=== PATIENT | female | born 1940 | race Caucasian/White ===

== ENCOUNTER → 2017-12-01 | Day surgery (SDC) | payer MEDICARE, SELFPAY | END | disposition home or self-care (01) | PROVIDERS: Family Provider Physician Assistant; PCP Physician Assistant; Visit Provider Ophthalmology | DX: H25.11 Age-related nuclear cataract, right eye (principal); F41.9 Anxiety disorder, unspecified | CPT/HCPCS: J2250; J3010 ==

== ENCOUNTER → 2018-01-27 09:10 | Outpatient (CLI) | payer MEDICARE, SELFPAY ==
[2018-01-27 09:53] LABS: Alanine Aminotransferase 31 IU/L (9-52); Albumin 4.6 g/dL (3.5-5.0); Albumin Globulin Ratio 1.6 (1.0-2.8); Alkaline Phosphatase 79 U/L (38-126); Aspartate Aminotransferase 42 IU/L (14-36); Bilirubin Total 0.8 mg/dL (0.2-1.3); Blood Urea Nitrogen 16 mg/dL (7-17); Calcium 9.5 mg/dL (8.4-10.2); Carbon Dioxide 29 mmol/L (22-32); Chloride 104 mmol/L (98-107); Cholesterol 196 mg/dL (140-199); Estimated Glomerular Filt Rate > 60.0 mL/min (>60); Globulin 2.9 g/dL (1.7-4.1); Glucose 97 mg/dL (80-110); HDL Cholesterol 64 mg/dL (40-60); HEMOLYSIS < 15 (0-50); LDL Cholesterol Calculated 109 mg/dL (<100); Potassium 4.5 mmol/L (3.4-5.1); Sodium 144 mmol/L (137-145); Total Protein 7.5 g/dL (6.3-8.2); Triglycerides 116 mg/dL (35-150)
== END ==
PROVIDERS: Family Provider Physician Assistant; PCP Physician Assistant; Visit Provider Physician Assistant
DX: E78.5 Hyperlipidemia, unspecified (principal)
CPT/HCPCS: 36415; 80053; 80061

== ENCOUNTER → 2018-02-12 15:05 | Outpatient (CLI) | payer MEDICARE, SELFPAY ==
--- NOTE | 2018-02-12 | DI.MRI.S_ITS ---
PROCEDURE: MR KNEE LT WO CON INDICATIONS: LEFT KNEE PAIN TECHNIQUE: Noncontrast sagittal PD fast spin echo and T2 fast spin echo with fat saturation, sagittal 3-D FLASH with fat saturation; coronal T1 spin echo and PD fast spin echo with fat saturation, and axial PD fast spin echo with fat saturation through the knee. COMPARISON: None. FINDINGS: Image quality: Excellent. Menisci: Lateral meniscal tear with truncation of the free margin of the body seen on image 19 series 6. There is also an undersurface tear of the medial meniscus and involving the body and posterior horn. There is partial extrusion. Cruciate ligaments: The anterior cruciate ligament is not well-visualized and likely ruptured although this is probably a chronic finding. The posterior cruciate ligament appears intact. Medial structures: The medial collateral ligament appears intact. The posterior oblique ligament, semimembranosus tendon insertions, oblique popliteal ligament, and meniscocapsular junction appear intact. Visualized portions of the pes anserinus tendons appear normal. No abnormal bursal fluid. Lateral structures: The lateral collateral ligament, long and short heads of the biceps femoris tendon appear intact. The popliteus tendon appears normal; the popliteofibular ligament appears intact. The posterosuperior and anteroinferior popliteomeniscal fascicles appear intact. The arcuate and fabellofibular ligaments appear intact, on either side of the lateral inferior geniculate artery. Iliotibial band appears normal. Anterior structures: The quadriceps and patellar tendons appear intact. There is superficial infrapatellar subcutaneous edema Patellar alignment is normal. No femoral trochlear dysplasia or ventral trochlear prominence. No edema in the infrapatellar fat pad. Bones and cartilage: No bone marrow contusions or fractures. Within the medial compartment, diffuse surface fraying of the femoral articular cartilage without focal defect. Within the lateral compartment, intrasubstance signal change at the central weightbearing tibial cartilage and diffuse mild partial thickness loss of the femoral cartilage. Within the patellofemoral compartment, surface fraying of the cartilage overlying the median patellar ridge and medial patellar facet. Joint space: No pathologic joint effusion. Tiny Riggs's cyst is seen measuring approximately 1.0 cm IMPRESSION: Medial meniscal tear involving the posterior horn and body with partial extrusion. Lateral meniscal tear involving the body. 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 Please correlate clinically abdomen exam findings. Degenerative joint disease as above. Tiny Riggs's cyst Dictated by: Jeremy Waterman M.D. on 02/12/2018 at 16:11 Approved by: Jeremy Waterman M.D. on 02/12/2018 at 16:16
== END ==
PROVIDERS: Family Provider Physician Assistant; PCP Physician Assistant; Visit Provider Physician Assistant
DX: M25.562 Pain in left knee (principal); S83.282A Other tear of lateral meniscus, current injury, left knee, initial encounter; S83.242A Other tear of medial meniscus, current injury, left knee, initial encounter; S83.512A Sprain of anterior cruciate ligament of left knee, initial encounter
CPT/HCPCS: 73721

== ENCOUNTER → 2019-10-17 18:40 | Outpatient (ROUT) | payer MEDICARE, SELFPAY ==
[2019-10-17 19:15] LABS: Add Manual Diff / Slide Review NO; Basophils Absolute Auto 0 /uL (0-100); Basophils Percent Auto 0.8 % (0-2); Eosinophils Absolute Auto 100 /uL (0-450); Eosinophils Percent Auto 1.8 % (2-4); Hemoglobin 13.9 g/dL (12.0-16.0); Lymphocytes Absolute Auto 1400 /uL (1100-4500); Mean Corpuscular HGB Conc 33.9 % (30-36); Mean Corpuscular Hemoglobin 31.7 PG (26-34); Mean Corpuscular Volume 93.5 fL (80-100); Monocytes Absolute Auto 400 /uL (0-900); Monocytes Percent Auto 7.8 % (3-14); Neutrophils Absolute Auto 3700 /uL (1500-7000); Neutrophils Percent Auto 65.6 % (50-75); Platelet Count 178 X10^3/uL (150-400); Red Blood Cell Count 4.39 X10^6/uL (4.0-5.2); Red Cell Distribution Width 13.8 % (11.6-14.8); White Blood Cell Count 5.7 X10^3/uL (4.5-11.0)
[2019-10-17 19:24] LABS: Alanine Aminotransferase 22 IU/L (<35); Albumin 4.5 g/dL (3.5-5.0); Albumin Globulin Ratio 1.7 (1.0-2.8); Alkaline Phosphatase 73 U/L (38-126); Aspartate Aminotransferase 38 IU/L (14-36); BUN Creatinine Ratio 26.5 (6-22); Bilirubin Total 0.6 mg/dL (0.2-1.3); Blood Urea Nitrogen 18 mg/dL (7-17); Calcium 9.7 mg/dL (8.4-10.2); Carbon Dioxide 28 mmol/L (22-32); Chloride 103 mmol/L (98-107); Cholesterol 184 mg/dL (140-199); Estimated Glomerular Filt Rate > 60.0 mL/min (>60); Globulin 2.7 g/dL (1.7-4.1); Glucose 104 mg/dL (80-110); HDL Cholesterol 60 mg/dL (40-60); HEMOLYSIS < 15 (0-50); LDL Cholesterol Calculated 92 mg/dL (<100); Potassium 3.9 mmol/L (3.4-5.1); Sodium 138 mmol/L (137-145); Total Protein 7.2 g/dL (6.3-8.2); Triglycerides 162 mg/dL (35-150)
== END ==
PROVIDERS: Family Provider Physician Assistant; PCP Physician Assistant; Visit Provider Physician Assistant
DX: E78.5 Hyperlipidemia, unspecified (principal)
CPT/HCPCS: 80053; 80061; 85025

== ENCOUNTER 2020-01-23 08:30 | Observation (INO) | payer MEDICARE, SELFPAY ==
[2020-01-23] VITALS (24 sets, daily range): BP systolic 82–117; BP diastolic 44–68; PULSE 60–69; RESP 12–18; TEMP 36.4–37.7; O2SAT 91–98; BMI 26.5; BMI 26.4
--- NOTE | 2020-01-23 | PATH_ITS ---
[facility] Accession Number: [id number] . 01 Material submitted: . appendix - APPENDIX . 01 Clinical history: . STOMACH PAINS . 02 Diagnosis: Appendix, Appendectomy: Acute appendicitis with serositis. No evidence of neoplasm. V 01/25/2020 1211 Local . 02 Electronically signed: . Veto Collins MD, PhD, Pathologist NPI- [id number] . 01 Gross description: . Specimen A is received in formalin and labeled appendix. It consists of a vermiform appendix measuring 5.6 cm in length and 0.8 cm in diameter. The attached mesoappendix measures 7.0 x 2.2 x 1.9 cm. The staple line at the proximal margin is removed and the tissue underneath is inked black. The serosa is pink-pereyra with scattering white exudate. Sectioning reveals pink-pereyra cut surface with a patent lumen which dilates up to 0.6 cm. The wall thickness is 0.2 cm. The mucosa is red to brown-pereyra and mildly rough. Summary of sections: Lighting Fixtures Decorator are submitted in three cassettes. Summary of sections: A1-proximal margin, one piece. A2-sales representative livestock cross-sections of appendix, three pieces. A3-bisected appendiceal tip, two pieces. (____/[id number] [id number]) /MRV 01/24/2020 1131 Local . 02 Pathologist provided ICD-10: K35.80 . 02 CPT . 809623 Performed at: 01 [facility] [address] [facility], [place], [place] [id number] MD Leon Storm MD Phone: [phone] Performed at: 02 [facility] [place] [address] [place], [place] [id number] MD Ariadna Vyas MD Phone: [phone]
[2020-01-23 08:59] LABS: Add Manual Diff / Slide Review NO; Basophils Absolute Auto 0 /uL (0-100); Basophils Percent Auto 0.3 % (0-2); Eosinophils Absolute Auto 0 /uL (0-450); Eosinophils Percent Auto 0.1 % (2-4); Hematocrit 39.9 % (36-46); Hemoglobin 13.9 g/dL (12.0-16.0); Lymphocytes Absolute Auto 600 /uL (1100-4500); Lymphocytes Percent Auto 4.7 % (25-40); Mean Corpuscular HGB Conc 34.8 % (30-36); Mean Corpuscular Hemoglobin 32.5 PG (26-34); Mean Corpuscular Volume 93.6 fL (80-100); Monocytes Absolute Auto 600 /uL (0-900); Monocytes Percent Auto 4.6 % (3-14); Neutrophils Absolute Auto 12100 /uL (1500-7000); Neutrophils Percent Auto 90.3 % (50-75); Platelet Count 162 X10^3/uL (150-400); Prothrombin Time 11.7 SECONDS (10.1-12.7); Red Blood Cell Count 4.27 X10^6/uL (4.0-5.2); Red Cell Distribution Width 13.5 % (11.6-14.8); White Blood Cell Count 13.4 X10^3/uL (4.5-11.0)
[2020-01-23 09:02] LABS: PTT Partial Thromboplastin Tim 29 SECONDS (26.4-36.2)
[2020-01-23 09:07] LABS: Alanine Aminotransferase 20 IU/L (<35); Albumin 4.8 g/dL (3.5-5.0); Albumin Globulin Ratio 1.8 (1.0-2.8); Alkaline Phosphatase 84 U/L (38-126); Aspartate Aminotransferase 38 IU/L (14-36); BUN Creatinine Ratio 27.4 (6-22); Bilirubin Total 0.7 mg/dL (0.2-1.3); Blood Urea Nitrogen 17 mg/dL (7-17); Calcium 9.6 mg/dL (8.4-10.2); Carbon Dioxide 22 mmol/L (22-32); Chloride 106 mmol/L (98-107); Estimated Glomerular Filt Rate > 60.0 mL/min (>60); Globulin 2.7 g/dL (1.7-4.1); Glucose 147 mg/dL (80-110); HEMOLYSIS < 15 (0-50); Lipase 1748 U/L (23-300); Potassium 4.2 mmol/L (3.4-5.1); Sodium 137 mmol/L (137-145); Total Protein 7.5 g/dL (6.3-8.2)
--- NOTE | 2020-01-23 09:39 | DI.CT.S_ITS ---
PROCEDURE: CT ABDOMEN PELVIS W CON INDICATIONS: severe right and left lower tenderness with guarding and anthony TECHNIQUE: After the administration of intravenous contrast, 5 mm thick sections acquired from the diaphragm to the symphysis. 5 mm coronal and sagittal reformats were acquired. For radiation dose reduction, the following was used: automated exposure control, adjustment of mA and/or kV according to patient size. COMPARISON: [facility], , L-SPINE WITHOUT CONTRAST, 11/13/2015, 12:33. FINDINGS: Image quality: Excellent. ABDOMEN: Lung bases: Lung bases are clear. Heart size is normal. There is a small hiatal hernia. Solid organs: Liver is normal in size and enhancement. There is a 1.4 x 2.1 cm bilobed hypodensity in the left hepatic lobe, most likely a cyst. There is mild intrahepatic biliary dilation, presumably related to cholecystectomy. Common bile duct is mildly dilated. Pancreas enhances normally. Spleen is normal in size and enhancement. There is a 1.2 cm left adrenal nodule. Kidneys demonstrate normal size and enhancement, without hydronephrosis. Peritoneum and bowel: Appendix is enlarged measuring 10 mm in diameter. There is increased appendiceal wall enhancement and mild periappendiceal stranding. Small appendicoliths within the distal appendix. The CT findings are consistent with early acute appendicitis. No fluid collections to suggest appendiceal abscess. No free fluid or free air. Fluid filled small bowel loops demonstrate normal caliber without transition point. Possible mild thickening of terminal ileum. There are scattered colonic diverticula. Nodes and vessels: No retroperitoneal or mesenteric adenopathy by size criteria. Aorta and inferior vena cava are normal in size. Moderate atherosclerosis of the abdominal aorta and iliac arteries. Miscellaneous: No ventral hernias. PELVIS: Genitourinary: Bladder wall thickness is normal. Miscellaneous: No inguinal hernias or adenopathy. Bones: No suspicious bony lesions. No vertebral body compression fractures. Severe degenerative changes in lumbar spine. IMPRESSION: 1. Early acute appendicitis. No findings to suggest appendiceal perforation or abscess. 2. Diverticulosis without acute diverticulitis. 3. Fluid filled small bowel loops demonstrate normal caliber without transition point, most likely secondary to ileus. There is possible mild thickening of terminal ileum. Differential diagnoses include artifact related to peristalsis or inflammatory/infectious process. 4. A 1.2 cm left adrenal nodule. A nonurgent adrenal protocol CT or MRI is suggested for further evaluation. Dictated by: Maria R Escalante M.D. on 01/23/2020 at 10:25 Approved by: Maria R Escalante M.D. on 01/23/2020 at 10:38
[2020-01-23] MEDS: MORPHINE 4 MG/ML INJ IV (09:48)
[2020-01-23] MEDS: diphenhydrAMINE 50 MG/ML VIAL 25 MG IV (09:49)
[2020-01-23] MEDS: methylPREDNISolone 125 MG/2 ML VIAL IV (09:49)
[2020-01-23] MEDS: ONDANSETRON 4 MG/2 ML INJ IV (09:49)
[2020-01-23 09:54] LABS: Lactate Dehydrogenase 422 U/L (313-618)
[2020-01-23 10:15] LABS: Lactate (Lactic Acid) 0.9 mmol/L (0.7-2.1)
--- NOTE | 2020-01-23 12:01 | ED.ABDPAIN ---
HPI - Abdominal Pain General Chief Complaint: Abdominal Pain Stated Complaint: stomach pains Time Seen by Provider: 01/23/20 09:31 Source: patient Mode of arrival: Ambulatory Limitations: no limitations Related Data Home Medications Medication Instructions Recorded Confirmed vitamin B complex [B 1 tab PO QDAY #0 11/24/16 03/01/19 Complex-Vitamin B12] omega-3 fatty acids 1,000 mg 1,000 mg PO DAILY 01/28/18 01/23/20 capsule Chalino/Mag/Zinc 1 tab PO DAILY 03/01/19 01/23/20 Sleep Aid from [employer] 1 cap PO BEDTIME PRN 03/01/19 01/23/20 vit C 250 mg-E 200 unit-zinc 40 1 tab PO DAILY cap 03/01/19 01/23/20 mg-copper 1 [id number] capsule Previous Rx's Medication Instructions Recorded pneumoc 13-edelmira conj-dip cr(PF) 0.5 0.5 ml IM ONCE #0.5 ml 03/01/19 mL IM syringe varicella-zoster gE-AS01B (PF) 50 50 mcg IM ONCE #1 each 03/01/19 mcg/0.5 mL IM susp, kit atorvastatin 80 mg tablet 80 mg PO HS #360 tab 04/06/19 sertraline 100 mg tablet See Rx Instructions PO QDAY #360 04/06/19 tab Allergies Allergy/AdvReac Type Severity Reaction Status Date / Time cat dander [CAT DANDER] Allergy Mild HIVES, Verified 01/23/20 14:37 ITCHING Iodinated Contrast Media Allergy Swelling Verified 01/23/20 14:37 of Lip/Tongue/Throat contrast for eye AdvReac Severe throat Uncoded 01/23/20 09:00 swells tingling in arm 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 Does not appear toxic or ill. She does appear pale HEAD: AT/NC EENT: PERRL, FROM of eyes, no discharge, no conjunctivitis. Conjunctivae appear pale NOSE:No epistaxis or nasal drainage MOUTH:Oral mucosa is moist and pink, posterior pharynx is without erythema or exudate. NECK: Supple, no obvious JVD, Trachea is midline without stridor, no palpable LN. SPINE: Palpation of the cervical, Thoracic, Lumbar or Sacral spine reveals no gross deformity or tenderness. No CVA tenderness. THORAX: No deformity, retractions, chest wall tenderness. LUNGS: Breath sounds are decreased bilaterally clear and symmetrical. HEART: Regular rhythm with normal heart tones no appreciable murmur ABDOMEN: The patient's abdomen is mildly distended and tympanitic. The patient is exquisitely tender to palpation right lower quadrant greater than the left lower quadrant with guarding and mild rebound. On palpation the patient jumped with discomfort. The rest of the patient's abdomen was soft. EXTREMITIES: No edema, deformity, tenderness or cyanosis. SKIN: No rash, bruising, petechiae or purpura. NEURO: Awake, alert, oriented, conversive, cranial nerves II-XII are symmetrical , moves all 4 extremities and is ambulatory. MENTAL HEALTH: Does not appear anxious or depressed. Initial Vital Signs Initial Vital Signs: Vital Signs Temperature 97.9 F 01/23/20 08:30 Pulse Rate 64 01/23/20 08:30 Respiratory Rate 18 01/23/20 08:30 Blood Pressure 116/62 01/23/20 08:30 Pulse Oximetry 98 01/23/20 08:30 Course Course Course Narrative: 1155: The patient's lipase is elevated at 1748 consistent with acute pancreatitis, her white blood count is 13.4. CT: Abdomen: 1. CT of the patient's abdomen reveals early appendicitis. No findings to suggest appendiceal perforation or abscess. 2. Diverticulosis without acute diverticulitis 3. Fluid filled small bowel loops demonstrated normal caliber without transition point. Most likely secondary to ileus. There is possible mild thickening of the terminal ileum. Differential diagnosis include artifact related to peristalsis or inflammatory infectious process. 4. A 1.2 cm left adrenal nodule. A non urgent adrenal protocol CT or MRI is suggested for further evaluation. 1208: The patient has acute appendicitis on CT. She will be administered 4.5 g of Zosyn. A call has been placed to Dr. Haley the general surgeon on-call to consult and admit the patient. 12:13 I discussed the patient with who will admit the patient observation status. Orders Ordered: Acetaminophen (Tylenol) 650 mg PO Q6HR HANANE Last Admin: 01/23/20 18:13 Dose: 650 mg Documented by: JORGE Atorvastatin Calcium (Lipitor) 80 mg PO BEDTIME HANANE Fentanyl (Sublimaze) 0 mcg IV Q5M PRN PRN Reason: Pain, Moderate (4-6) Fish Oil (Fish Oil) 1,000 mg PO DAILY HANANE Hydromorphone HCl (Dilaudid) 0 mg IV Q5MIN PRN PRN Reason: Pain, Mild (1-3) Sodium Chloride (Normal Saline 0.9%) 1,000 mls @ 100 mls/hr IV CONT HANANE Last Admin: 01/23/20 14:22 Dose: Not Given Documented by: CHRISTINA Piperacillin/Tazobactam/Dextrose (Zosyn) 3.375 gm in 50 mls @ 100 mls/hr IV Q8H HANANE Last Admin: 01/23/20 14:21 Dose: Not Given Documented by: TBLANTO Lutein (Ocuvite/Lutein) 1 cap PO DAILY HANANE Morphine Sulfate (Morphine) 2 mg IV Q4HR PRN PRN Reason: Pain, Moderate (4-6) Naloxone HCl (Narcan) 0.2 mg IV Q2MIN PRN PRN Reason: Opiate Reversal Non-Formulary Medication (Sleep Aid From [employer]) 1 cap PO BEDTIME PRN PRN Reason: Sleep Non-Formulary Medication (Varicella-Zoster Ge-As01b (Pf) [Shingrix (Pf)]) 50 mcg IM ONCE HANANE Ondansetron HCl (Zofran) 4 mg IV Q2HR PRN PRN Reason: Nausea And Vomiting Last Admin: 01/23/20 09:49 Dose: 4 mg Documented by: ROXANA Ondansetron HCl (Zofran) 4 mg IV NOW PRN PRN Reason: Nausea And Vomiting Oxycodone HCl (Percolone) 5 mg PO Q6HR PRN PRN Reason: Pain, Moderate (4-6) Pneumococcal 13-Valent Conj Vacc (Prevnar 13) 0.5 ml IM ONCE HANANE Sertraline HCl (Zoloft) 100 mg PO DAILY HANANE Sodium Chloride (Normal Saline 0.9% Flush) 10 ml IV PRN PRN PRN Reason: Flush Discontinued Medications Bupivacaine HCl (Sensorcaine 0.5% (Pf)) 30 ml INJ NOW ONE Stop: 01/23/20 15:53 Last Admin: 01/23/20 15:52 Dose: 30 ml Documented by: MARIA DOLORES Diphenhydramine HCl (Benadryl) 25 mg IV NOW ONE Stop: 01/23/20 09:42 Last Admin: 01/23/20 09:49 Dose: 25 mg Documented by: ROXANA Piperacillin/Tazobactam/Dextrose (Zosyn) 4.5 gm in 100 mls @ 200 mls/hr IV NOW ONE Stop: 01/23/20 12:37 Last Infusion: 01/23/20 14:22 Dose: 0 mls/hr Documented by: Admin: 01/23/20 12:30 Dose: 200 mls/hr Documented by: ROXANA Lactated Ringer's (Lactated Ringers) 1,000 mls @ 42 mls/hr IV CONT HANANE Last Admin: 01/23/20 16:39 Dose: 42 mls/hr Documented by: Infusion: 01/23/20 16:39 Dose: 42 mls/hr Documented by: Admin: 01/23/20 14:43 Dose: 42 mls/hr Documented by: RAYNE Methylprednisolone (Solu-Medrol 125 Mg Vial) 125 mg IV NOW ONE Stop: 01/23/20 09:42 Last Admin: 01/23/20 09:49 Dose: 125 mg Documented by: ROXANA Midazolam HCl (Versed) 2 mg IV NOW ONE Stop: 01/23/20 13:18 Last Admin: 01/23/20 17:59 Dose: Not Given Documented by: JORGE Morphine Sulfate (Morphine) 4 mg IV NOW ONE Stop: 01/23/20 09:42 Last Admin: 01/23/20 09:48 Dose: 4 mg Documented by: ROXANA Non-Formulary Medication (Chalino/Mag/Zinc) 1 tab PO DAILY HANANE Vital Signs Vital signs: Vital Signs - 8 hr 01/23/20 12:49 Pulse Rate 64 Respiratory Rate 16 Blood Pressure 93/57 L Pulse Oximetry 93 MDM - Abdominal Pain Medical Records Attestation: I reviewed the patient's medical records. Lab Data Attestation: I reviewed the patient's lab results. Result diagrams: 01/23/20 08:40 01/23/20 08:40 Labs: Lab Results 01/23/20 01/23/20 01/23/20 Range/Units 08:40 08:40 08:40 WBC 13.4 H (4.5-11.0) X10^3/uL RBC 4.27 (4.0-5.2) X10^6/uL Hgb 13.9 (12.0-16.0) g/dL Hct 39.9 (36-46) % MCV 93.6 (80-100) fL MCH 32.5 (26-34) PG MCHC 34.8 (30-36) % RDW 13.5 (11.6-14.8) % Plt Count 162 (150-400) X10^3/uL Neut % (Auto) 90.3 H (50-75) % Lymph % (Auto) 4.7 L (25-40) % [place] % (Auto) 4.6 (3-14) % Eos % (Auto) 0.1 L (2-4) % Baso % (Auto) 0.3 (0-2) % Neut # (Auto) 74581 H (3085-4389) /uL Lymph # (Auto) 600 L (5798-5571) /uL Denton # (Auto) 600 (0-900) /uL Eos # (Auto) 0 (0-450) /uL Baso # (Auto) 0 (0-100) /uL PT 11.7 (10.1-12.7) SECONDS INR 1.0 (0.9-1.3) APTT 29 (26.4-36.2) SECONDS Sodium 137 (137-145) mmol/L Potassium 4.2 (3.4-5.1) mmol/L Chloride 106 (98-107) mmol/L Carbon Dioxide 22 (22-32) mmol/L BUN 17 (7-17) mg/dL Creatinine 0.62 (0.52-1.04) mg/dL Estimated GFR > 60.0 (>60) mL/min BUN/Creatinine Ratio 27.4 H (6-22) Glucose 147 H (80-110) mg/dL Lactate (0.7-2.1) mmol/L Calcium 9.6 (8.4-10.2) mg/dL Total Bilirubin 0.7 (0.2-1.3) mg/dL AST 38 H (14-36) IU/L ALT 20 (<35) IU/L Alkaline Phosphatase 84 (38-126) U/L Lactate Dehydrogenase (313-618) U/L Total Protein 7.5 (6.3-8.2) g/dL Albumin 4.8 (3.5-5.0) g/dL Globulin 2.7 (1.7-4.1) g/dL Albumin/Globulin Ratio 1.8 (1.0-2.8) Lipase 1748 H (23-300) U/L COVID-19 PCR (Negative) 01/23/20 01/23/20 01/23/20 Range/Units 09:39 09:46 12:42 WBC (4.5-11.0) X10^3/uL RBC (4.0-5.2) X10^6/uL Hgb (12.0-16.0) g/dL Hct (36-46) % MCV (80-100) fL MCH (26-34) PG MCHC (30-36) % RDW (11.6-14.8) % Plt Count (150-400) X10^3/uL Neut % (Auto) (50-75) % Lymph % (Auto) (25-40) % [place] % (Auto) (3-14) % Eos % (Auto) (2-4) % Baso % (Auto) (0-2) % Neut # (Auto) (6395-4034) /uL Lymph # (Auto) (9266-7109) /uL Denton # (Auto) (0-900) /uL Eos # (Auto) (0-450) /uL Baso # (Auto) (0-100) /uL PT (10.1-12.7) SECONDS INR (0.9-1.3) APTT (26.4-36.2) SECONDS Sodium (137-145) mmol/L Potassium (3.4-5.1) mmol/L Chloride (98-107) mmol/L Carbon Dioxide (22-32) mmol/L BUN (7-17) mg/dL Creatinine (0.52-1.04) mg/dL Estimated GFR (>60) mL/min BUN/Creatinine Ratio (6-22) Glucose (80-110) mg/dL Lactate 0.9 (0.7-2.1) mmol/L Calcium (8.4-10.2) mg/dL Total Bilirubin (0.2-1.3) mg/dL AST (14-36) IU/L ALT (<35) IU/L Alkaline Phosphatase (38-126) U/L Lactate Dehydrogenase 422 (313-618) U/L Total Protein (6.3-8.2) g/dL Albumin (3.5-5.0) g/dL Globulin (1.7-4.1) g/dL Albumin/Globulin Ratio (1.0-2.8) Lipase (23-300) U/L COVID-19 PCR Negative (Negative) Point of care testing: Urine Dip Bedside Urine Glucose Negative Bedside Urine Bilirubin - Negative Bedside Urine Ketone - Negative Urine Specific Imperial 1.010 Bedside Urine Occult Blood - Negative Bedside Urine pH 6.0 Bedside Urine Protein - Negative Bedside Urine Urobilinogen - Negative Bedside Urine Nitrite - Negative Bedside Urine Leukocytes - Negative Esterase ECG Data Attestation: I personally reviewed and interpreted this ECG as follows: Interpretation: The patient's EKG obtained on January 22 at 9:00 a.m. revealed a normal sinus rhythm with a ventricular rate of 61. She has normal intervals QTC is 446 milliseconds duration. The patient has low voltage criteria over her limb leads. The patient has no acute diagnostic ST or T-wave changes. The patient's EKG appears normal without any signs of ischemia or injury. T-waves are upright in lead III and V1. Discharge Plan Departure Patient Disposition: Admitted as Observation Clinical Impression: Abdominal pain, acute, right lower quadrant Acute appendicitis Qualifiers: Acute appendicitis type: unspecified acute appendicitis type Qualified Code(s): K35.80 - Unspecified acute appendicitis Acute pancreatitis Qualifiers: Pancreatitis type: unspecified pancreatitis type Acute pancreatitis complication: unspecified Qualified Code(s): K85.90 - Acute pancreatitis without necrosis or infection, unspecified Discharge Date/Time: 01/23/20 12:57 Referrals: Marli Ag PA-C [Primary Care Provider] - Admit Date/Time: 01/23/20 12:56 Admit Provider: Kelby Haley
[2020-01-23] MEDS: PIPERACILLIN-TAZO 4.5 GM/100 ML FROZ.PIGGY IV (12:30)
[2020-01-23 13:43] LABS: COVID19 -Nasal RAPID Negative (Negative)
--- NOTE | 2020-01-23 14:25 | PC.NURSE ---
pt admitted from ed with appendicitis/pancreatitis she rates her lower right abd pain 1-2/10 urinated prior to leaving with OR CREW-
--- NOTE | 2020-01-23 14:29 | P.HP_ITS ---
History of Present Illness History of Present Illness Date Patient Seen: 01/23/20 Time Patient Seen: 14:30 Chief complaint: stomach pains Narrative: Gloria is a healthy 79-year-old woman who is seen for evaluation of acute appendicitis. She developed abdominal pain <24 hrs ago which has become increasingly severe in nature. It is located primarily in the right lower quadrant now. She had associated nausea and diarrhea no emesis. She had a CT abdomen pelvis which demonstrates acute appendicitis without abscess. Laboratory studies are significant for WBC 13, Hct 40, Cr 0.6, and Lipase 1700. I personally reviewed her CT and agree with radiology there is no radiographic evidence of pancreatitis. Prior abdominal surgery includes laparoscopic cholecystectomy and hysterectoy. No significant history of cardiopulmonary renal or hepatic disease. She is a nonsmoker and not on anticoagulation. 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 09/22/16) Generalized anxiety disorder (Chronic) Hyperlipidemia (Chronic 12/16/10) Other isolated or specific phobias (Chronic) Panic disorder (Chronic 12/16/10) Family & Social History Social History: household members spouse Prior Living Arrangements House Safety & Behavioral: Feels Safe in Current Yes Environment Been Physically Hurt or No Threatened By a Person Suicide Plan Description No Plan Tobacco & Substance use: Smoking Status Former smoker alcohol intake current alcohol intake frequency 0-2 drinks per day Substance Use Type does not use Meds Home Medications and Allergies Home Medications Medication Instructions Recorded Confirmed Type vitamin B complex [B 1 tab PO QDAY #0 11/24/16 03/01/19 History Complex-Vitamin B12] omega-3 fatty acids 1,000 mg 1,000 mg PO DAILY 01/28/18 03/01/19 History capsule Chalino/Mag/Zinc 1 tab PO DAILY 03/01/19 01/23/20 History Sleep Aid from [employer] 1 cap PO BEDTIME PRN 03/01/19 03/01/19 History pneumoc 13-edelmira conj-dip cr(PF) 0.5 0.5 ml IM ONCE #0.5 ml 03/01/19 Rx mL IM syringe varicella-zoster [id number] (PF) 50 50 mcg IM ONCE #1 each 03/01/19 Rx mcg/0.5 mL IM susp, kit vit C 250 mg-E 200 unit-zinc 40 1 tab PO DAILY cap 03/01/19 03/01/19 History mg-copper 1 ku-hkabct-nzoluh capsule atorvastatin 80 mg tablet 80 mg PO HS #360 tab 04/06/19 01/23/20 Rx sertraline 100 mg tablet See Rx Instructions PO QDAY #360 04/06/19 Rx tab Allergies Allergy/AdvReac Type Severity Reaction Status Date / Time cat dander [CAT DANDER] Allergy Mild HIVES, Verified 01/23/20 14:37 ITCHING Iodinated Contrast Media Allergy Swelling Verified 01/23/20 14:37 of Lip/Tongue/Throat contrast for eye AdvReac Severe throat Uncoded 01/23/20 09:00 swells tingling in arm Review of Systems Review of Systems Narrative: A 10 point review of systems is negative except as noted in the HPI Exam Vital Signs (past 8 hours): - 01/23/20 08:30 01/23/20 09:00 01/23/20 10:50 Temperature 97.9 F Pulse Rate 64 61 60 Respiratory Rate 18 12 16 Blood Pressure 116/62 Blood Pressure [Right Arm] 115/54 L 111/55 L Pulse Oximetry 98 94 97 01/23/20 12:49 01/23/20 13:30 01/23/20 14:17 Temperature 98.5 F Pulse Rate 64 60 Respiratory Rate 16 16 Blood Pressure 93/57 L 106/68 Blood Pressure [Right Arm] Pulse Oximetry 93 94 97 Oxygen Delivery Method Room Air Oxygen Flow Rate 0 Narrative Exam Narrative: General-no acute distress, well nourished HEENT-moist mucous membranes, no scleral icterus Neck-supple, no lymphadenopathy Chest- non labored respirations, clear to auscultation bilaterally Cardiac-regular rate no peripheral edema Abdomen-focal peritonitis RLQ Extremities-warm, well perfused Neurological-alert and oriented, no focal deficits Objective Labs Result Diagrams: 01/23/20 08:40 01/23/20 08:40 Labs: Laboratory Results - last 24 hr 01/23/20 01/23/20 01/23/20 08:40 08:40 08:40 WBC 13.4 H RBC 4.27 Hgb 13.9 Hct 39.9 MCV 93.6 MCH 32.5 MCHC 34.8 RDW 13.5 Plt Count 162 Neut % (Auto) 90.3 H Lymph % (Auto) 4.7 L Sutton % (Auto) 4.6 Eos % (Auto) 0.1 L Baso % (Auto) 0.3 Neut # (Auto) 47044 H Lymph # (Auto) 600 L Sutton # (Auto) 600 Eos # (Auto) 0 Baso # (Auto) 0 PT 11.7 INR 1.0 APTT 29 Sodium 137 Potassium 4.2 Chloride 106 Carbon Dioxide 22 BUN 17 Creatinine 0.62 Estimated GFR > 60.0 BUN/Creatinine Ratio 27.4 H Glucose 147 H Lactate Calcium 9.6 Total Bilirubin 0.7 AST 38 H ALT 20 Alkaline Phosphatase 84 Lactate Dehydrogenase Total Protein 7.5 Albumin 4.8 Globulin 2.7 Albumin/Globulin Ratio 1.8 Lipase 1748 H COVID-19 PCR 01/23/20 01/23/20 01/23/20 09:39 09:46 12:42 WBC RBC Hgb Hct MCV MCH MCHC RDW Plt Count Neut % (Auto) Lymph % (Auto) Sutton % (Auto) Eos % (Auto) Baso % (Auto) Neut # (Auto) Lymph # (Auto) Sutton # (Auto) Eos # (Auto) Baso # (Auto) PT INR APTT Sodium Potassium Chloride Carbon Dioxide BUN Creatinine Estimated GFR BUN/Creatinine Ratio Glucose Lactate 0.9 Calcium Total Bilirubin AST ALT Alkaline Phosphatase Lactate Dehydrogenase 422 Total Protein Albumin Globulin Albumin/Globulin Ratio Lipase COVID-19 PCR Negative Assessment & Plan Assessment and plan (1) Acute appendicitis: Qualifiers: Acute appendicitis type: unspecified acute appendicitis type Qualified Code(s): K35.80 - Unspecified acute appendicitis Status: Acute Assessment & Plan narrative: 79-year-old woman with acute appendicitis <24hrs of symptoms diagnosis confirmed with CT which demonstrates acute appendicitis without abscess. I recommended that she undergo laparoscopic appendectomy. Discussed alternative treatment, the technical nature of the operation, the expected postoperative recovery and the surgical risks including mortality, intestinal, ureteral or vascular injury,infection, and hernia formation. Her questions have been answered will proceed to the operating room.
[2020-01-23] MEDS: LACTATED RINGERS 1,000 ML 42 ML IV ×2 (14:43→16:39)
--- NOTE | 2020-01-23 15:44 | SUR.OPER ---
Supine on padded OR bed, head on pillow, right arm secured on padded arm boards at <90 degrees abduction, left arm is tucked, legs uncrossed, safety belt at thigh, tape over blanket over lower legs.
[2020-01-23] MEDS: BUPIVACAINE 0.5% (PF) VIAL 30 ML INJ (15:52)
--- NOTE | 2020-01-23 16:58 | P.OP_ITS ---
Operative Date/Time/Diagnoses Date of procedure: 01/23/20 Time of procedure: 16:58 Pre-op diagnosis: Acute appendicitis Post-op diagnosis: same Procedure & Clinicians Procedure: Laparoscopic appendectomy Same procedure as scheduled: Yes Indications: 79-year-old woman presents with right lower quadrant pain CT scan demonstrates acute appendicitis without abscess Surgeon: Kelby Haley Anesthesia Type: General Operative Notes Findings: Acute non perforated appendicitis Specimen(s): other (Appendix) Estimated Blood Loss (mL): 10 Procedure in detail: Patient was brought to the operating room placed supine on the table. Bilateral lower extremity compression devices were applied. They were induced and intubated with an endotracheal tube. They received 3.375 g of Zosyn prior to skin incision. They were prepped and draped in sterile fashion. Time-out was performed to ensure the correct patient procedure necessary eq uipment within the operating room. The skin was infiltrated with 0.25% bupivacaine. A infraumbilical incision was made the umbilical stalk was grasped and elevated and incision was made and the abdomen was entered atraumatically. A 12 mm balloon trocar was then placed into the incision and pneumoperitoneum was established. The scope was then inspected abdomen inspected and there was no evidence of injury upon entry. Two 5 mm working ports were then placed supra pubic and in the left lower quadrant. The small bowel was then swept to the upper aspect of the abdomen. The tenie were followed to the base of the cecum where the appendix was identified. It was acutely inflamed but not perforated. The appendix was grasped and a window within the mesentery was made. The mesentery to the appendix was taken with the stapler using the vascular staple load, EndoGIA 45mm white load. The appendix was then transected from the cecum at its base using the Endo GI stapler with a blue load. The specimen was removed using the Endo-Catch bag. The abdomen was irrigated and hemostasis was checked and staple lines were carefully inspected. The ports were then removed under direct visualization. The umbilical fascial incision was closed with 0 Vicryl in a figure-eight fashion. The skin wounds were irrigated and closed with Monocryl followed by the application of Dermabond. Sponge instrument count at the end of the operation was correct. The patient tolerated procedure well was extubated and transferred to the postoperative care unit in stable condition Complications: none Post-operative Condition: stable Disposition: Acute Care
--- NOTE | 2020-01-23 17:15 | SUR.PHASEI ---
Pt to be transferred back to room 214 via bed. Report given to EUNICE Aleman prior to transfer. See flowsheet documentation for details.
--- NOTE | 2020-01-23 17:47 | SUR.PHASEI ---
observed patient for last 2 sets of VS, stable. awake, drowsy, oriented. Taken to the room by Jimbo Carney RN. Jame Gaspar RN had already given report.
[2020-01-23] MEDS: ACETAMINOPHEN 325 MG TABLET 650 MG PO (18:13)
--- NOTE | 2020-01-23 19:55 | PC.NURSE ---
Post-op notes: Gloria brought from PACU awake, alert, VS stable. BP borderline low, pt reports her normal BP is low. Since post-op has been on 1.5 L O2 via NC with sat of 96%, weaned to 1L just now, maintaining 95-96%, continuous pulse ox monitoring in place. She denies any pain or nausea, tolerating pudding and 1/2 sandwich. Abdomen is soft, 3 lap sites present with glue/steri-strips and are all CDI. Denies need to void, instructed to drink plenty of H2O. IV LR infusing to R hand with no difficulty. Wearing bilateral calf SCD's, pedal pulses are strong. Denies current needs or concerns, reminded to call staff if she has any needs; she agrees to this plan. Bed alarm active & fall precautions in place.
[2020-01-23] MEDS: PIPERACILLIN-TAZO 3.375 GM/50 ML FROZ.PIGGY IV (21:19)
[2020-01-23] MEDS: ATORVASTATIN 20 MG TABLET 80 MG PO (21:20)
[2020-01-23] MEDS: SODIUM CHLORIDE 0.9% 1,000 ML 100 ML IV (22:46)
[2020-01-24 00:10] VITALS: O2SAT 94
--- NOTE | 2020-01-24 00:13 | PC.NURSE ---
Patient is alert and oriented. Breath sounds CTA with RA sat of 94%. HRR but bradycardic at 57 bpm. BP low at 95/52 but is asymptomatic. Denies nausea. BT present but has not yet passed flatus. Has voided and denies dysuria, frequency or urgency. Is able to turn self. Provided SBA when out of bed for safety. Lap sites x 3 to lower abdomen with dermabond + steristrips and no drainage/redness noted. Does have a bruise above umbilicus. Denies pain. Wearing bilateral SCD's. Fall risk score is low but instructed to call for assist since she is wearing SCD's and has a running IV.
[2020-01-24 01:00] VITALS: BP 95/52; PULSE 60; RESP 18; TEMP 37.1; O2SAT 93
[2020-01-24 04:00] VITALS: BP 92/53; PULSE 57; RESP 18; TEMP 36.2; O2SAT 95
[2020-01-24] MEDS: PIPERACILLIN-TAZO 3.375 GM/50 ML FROZ.PIGGY IV (04:47)
[2020-01-24] MEDS: ACETAMINOPHEN 325 MG TABLET 650 MG PO (05:56)
[2020-01-24] MEDS: SERTRALINE 50 MG TABLET 100 MG PO (07:53)
[2020-01-24 08:06] VITALS: O2SAT 96
[2020-01-24 09:00] VITALS: BP 97/51; PULSE 57; RESP 18; TEMP 36.6; O2SAT 95
[2020-01-24 09:07] LABS: Lipase 822 U/L (23-300)
--- NOTE | 2020-01-24 09:08 | CM.DANOTE ---
DCP: Case received, EMR reviewed and met with patient. Introduced self and role. , Rm, just arrived at bedside. Was able to speak to patient and obtain information regarding her baseline activity level prior to surgery. DCP assessment completed with information currently available. Patient is a 79 year old female who admitted yesterday afternoon to the care of the hospitalist team. PCP: Dr. Ag. Payer: confirmed: Medicare/[employer]. Patient came to the hospital via private vehicle secondary to abdominal pain. She was diagnosed with acute appendicitis, and had surgery yesterday afternoon. Met with her in her room, and with . Patient pleasant. She was sitting up in bed. She is independent at bedside, and uses a cane if needed. She also drives. Her and her live here in [place], and have been here for 20 years. Prior, they lived in [place]. P: DCP to continue to follow. Patient should be able to go home when she is medically stable. Debora Velasquez RN/Perinatal Director
--- NOTE | 2020-01-24 10:16 | PC.NURSE ---
Pt is dressed and ready for discharge home with Spouse. Went over d/c instructions with Pt and Spouse - discussed d/c meds, time of last dose, reviewed stroke education, bathing, diet, and encouraged deep breathing exercises and fluid intake to prevent constipation or dehydration. Reminded Pt that she is not to lift more than 20 pounds and only walking for exercise. Pt and Spouse deny further questions and Pt was taken out via w/c by RN to POV with all belongings.
--- NOTE | 2020-01-24 11:45 | PM.DS.1 ---
History of Present Illness History of Present Illness Chief complaint: stomach pains Narrative: Gloria is a healthy 79-year-old woman who is seen for evaluation of acute appendicitis. She developed abdominal pain <24 hrs ago which has become increasingly severe in nature. It is located primarily in the right lower quadrant now. She had associated nausea and diarrhea no emesis. She had a CT abdomen pelvis which demonstrates acute appendicitis without abscess. Laboratory studies are significant for WBC 13, Hct 40, Cr 0.6, and Lipase 1700. I personally reviewed her CT and agree with radiology there is no radiographic evidence of pancreatitis. Prior abdominal surgery includes laparoscopic cholecystectomy and hysterectoy. No significant history of cardiopulmonary renal or hepatic disease. She is a nonsmoker and not on anticoagulation. Discharge Providers Provider Date of admission: 01/23/20 12:56 Discharge Date: 01/24/20 Primary care physician: Marli Ag PA-C Discharge provider: Kelby Haley MD Summary Hospital Course Discharge Diagnosis: Acute appendicitis Hospital Course: Patient underwent a laparoscopic appendectomy on 01/22 which demonstrated acute non perforated appendicitis. She remained in the hospital for observation following the operation. Her hospital stay was unremarkable. She tolerated a regular diet her pain was well controlled with oral medication she was without nausea vomiting fever. Status at Discharge Cognitive/behavioral status at discharge: oriented Functional status at discharge: independent ambulation Exam Vital Signs (past 8 hours): - 01/24/20 04:00 01/24/20 08:06 01/24/20 09:00 Temperature 97.2 F L 97.9 F Pulse Rate 57 L 57 L Respiratory Rate 18 18 Blood Pressure 92/53 L 97/51 L Pulse Oximetry 95 96 95 Oxygen Delivery Method Room Air Oxygen Flow Rate 0 Narrative Exam Narrative: General adult female alert oriented no acute distress Abdomen soft nontender incisions clean dry intact Extremities warm well perfused Objective Labs Result Diagrams: 01/23/20 08:40 01/23/20 08:40 Labs: Laboratory Results - last 24 hr 01/23/20 01/24/20 12:42 08:16 Lipase 822 H D COVID-19 PCR Negative Discharge Plan Discharge Plan Patient Disposition: Home Discharge orders & Medications Prescriptions: New ibuprofen 200 mg tablet 800 mg PO Q6H PRN (Reason: pain) Qty: 40 RF: 0 acetaminophen [Tylenol] 325 mg capsule 650 mg PO QID PRN (Reason: pain) Qty: 60 RF: 0 Continued omega-3 fatty acids [Fish Oil Concentrate] 1,000 mg capsule 1,000 mg PO DAILY RF: 0 vitamin B complex [B Complex-Vitamin B12] 1 EACH tablet 1 tab PO QDAY Qty: 0 RF: 0 atorvastatin 80 mg tablet 80 mg PO HS Qty: 360 RF: 0 sertraline [Zoloft] 100 mg tablet See Rx Instructions PO QDAY Qty: 360 RF: 0 Chalino/Mag/Zinc 1 tab PO DAILY RF: 0 PreserVision AREDS-2 220-121-65-1 mm-iqlo-tg-mg capsule 1 tab PO DAILY RF: 0 Sleep Aid from [employer] 1 cap PO BEDTIME PRN (Reason: Sleep) RF: 0 Prevnar 13 (PF) 0.5 mL syringe 0.5 ml IM ONCE Qty: 0.5 RF: 0 Shingrix (PF) 50 mcg/0.5 mL suspension for reconstitution 50 mcg IM ONCE Qty: 1 RF: 1 Follow up/Referrals: Marli Ag PA-C [Primary Care Provider] - Diet/Activity/Treatments Diet: Regular Activity: No lifting >20 lbs x 4 weeks. Walking or biking only for exercise for 4 weeks. Skin/Wound/Dressing Care Report to your healthcare provider any signs of infection, such as:: chills, fever, increased pain and unusual drainage Visit Report/Discharge Packet Instructions: DI for an Appendectomy Visit Report Forms: Patient Portal/API, Stroke Signs & Symptoms Discharge Data Primary Care Provider: Marli Ag Attending Provider: Kelby Haley Admit Date/Time: 01/23/20 12:56 Discharges patient from system. Discharge Date/Time: 01/24/20 10:19
== END 2020-01-24 10:19 | disposition home or self-care (01) ==
LOC: ED 12:33 → AC 12:56
PROVIDERS: Admitting Provider Surgery; Emergency Provider Emergency Medicine; Family Provider Physician Assistant; PCP Physician Assistant; Visit Provider Surgery
PROC: 0DTJ4ZZ Resection of Appendix, Percutaneous Endoscopic Approach (ICD-10-PCS; CPT 44970; principal; 2020-01-23 15:15)
DX: K35.80 Unspecified acute appendicitis (principal); R10.9 Unspecified abdominal pain; F41.9 Anxiety disorder, unspecified; E78.5 Hyperlipidemia, unspecified; Z11.59 Encounter for screening for other viral diseases
CPT/HCPCS: 44970; 36415; 74177; 80053; 81003; 83605; 83615; 83690; 85025; 85610; 85730; 87635; 93005; 94762; 96365; 96366; 96375; 99219; 99284; G0378; J1100; J1200; J2270; J2405; J2543; J2704; J2930; J3010; Q9967

== ENCOUNTER → 2020-09-06 12:45 | Outpatient (CLI) | payer MEDICARE, SELFPAY ==
[2020-01-23 13:08] VITALS: BMI 26.4
[2020-09-06] MEDS: COVID-19 VACC #1, MRNA(MOD) 100 MCG/0.5 ML VIAL IM (12:49)
== END ==
PROVIDERS: Family Provider Physician Assistant; PCP Physician Assistant; Visit Provider Internal Medicine
DX: Z23 Encounter for immunization (principal)
CPT/HCPCS: 0011A; 91301

== ENCOUNTER → 2020-10-04 12:29 | Outpatient (CLI) | payer MEDICARE, SELFPAY ==
[2020-01-23 13:08] VITALS: BMI 26.4
[2020-10-04] MEDS: COVID-19 VACC #2, MRNA(MOD) 100 MCG/0.5 ML VIAL IM (12:36)
== END ==
PROVIDERS: Family Provider Physician Assistant; PCP Physician Assistant; Visit Provider Internal Medicine
DX: Z23 Encounter for immunization (principal)
CPT/HCPCS: 0012A; 91301

== ENCOUNTER → 2020-11-15 11:03 | Outpatient (CLI) | payer MEDICARE, OTHER, SELFPAY ==
[2020-01-23 13:08] VITALS: BMI 26.4
--- NOTE | 2020-11-15 | DI.RAD.S_ITS ---
PROCEDURE: XR CHEST 2V INDICATIONS: COUGH/SOB TECHNIQUE: 2 views of the chest were acquired. COMPARISON: None. FINDINGS: Surgical changes and devices: None. Lungs and pleura: Lungs are clear. No pleural effusions or pneumothorax. Mediastinum: Mediastinal contours are normal. Heart size is normal. Bones and chest wall: No suspicious bony abnormalities. Soft tissues appear unremarkable. IMPRESSION: No acute cardiopulmonary disease. Dictated by: Maria R Escalante M.D. on 11/15/2020 at 13:55 Approved by: Maria R Escalante M.D. on 11/15/2020 at 13:55
[2020-11-15 12:08] LABS: Add Manual Diff / Slide Review NO; Basophils Absolute Auto 0 /uL (0-100); Basophils Percent Auto 0.5 % (0-2); Eosinophils Absolute Auto 400 /uL (0-450); Eosinophils Percent Auto 3.9 % (2-4); Hematocrit 39.8 % (36-46); Hemoglobin 13.5 g/dL (12.0-16.0); Lymphocytes Absolute Auto 1100 /uL (1100-4500); Lymphocytes Percent Auto 11.6 % (25-40); Mean Corpuscular Hemoglobin 31.4 PG (26-34); Mean Corpuscular Volume 92.4 fL (80-100); Monocytes Absolute Auto 700 /uL (0-900); Monocytes Percent Auto 7.5 % (3-14); Neutrophils Absolute Auto 7600 /uL (1500-7000); Neutrophils Percent Auto 76.5 % (50-75); Platelet Count 247 X10^3/uL (150-400); Red Blood Cell Count 4.31 X10^6/uL (4.0-5.2); Red Cell Distribution Width 13.2 % (11.6-14.8); White Blood Cell Count 9.9 X10^3/uL (4.5-11.0)
[2020-11-15 12:23] LABS: Alanine Aminotransferase 19 IU/L (<35); Albumin 4.1 g/dL (3.5-5.0); Albumin Globulin Ratio 1.3 (1.0-2.8); Alkaline Phosphatase 118 U/L (38-126); Aspartate Aminotransferase 33 IU/L (14-36); BUN Creatinine Ratio 21.5 (6-22); Bilirubin Total 0.3 mg/dL (0.2-1.3); Blood Urea Nitrogen 14 mg/dL (7-17); Calcium 9.7 mg/dL (8.4-10.2); Carbon Dioxide 28 mmol/L (22-32); Chloride 104 mmol/L (98-107); Estimated Glomerular Filt Rate > 60.0 mL/min (>60); Globulin 3.2 g/dL (1.7-4.1); Glucose 102 mg/dL (80-110); HEMOLYSIS < 15 (0-50); Potassium 4.5 mmol/L (3.4-5.1); Sodium 139 mmol/L (137-145); Total Protein 7.3 g/dL (6.3-8.2)
[2020-11-15 13:09] LABS: TSH w/ Reflex to FT4 1.54 uIU/mL (0.47-4.68)
== END ==
PROVIDERS: Family Provider Physician Assistant; PCP Physician Assistant; Referring Provider Physician Assistant; Visit Provider Physician Assistant
DX: R05 Cough (principal); R53.83 Other fatigue; R06.02 Shortness of breath; R13.10 Dysphagia, unspecified
CPT/HCPCS: 36415; 71046; 80053; 84443; 85025

== ENCOUNTER → 2020-11-22 14:46 | Outpatient (ROUT) | payer MEDICARE, OTHER, SELFPAY ==
[2020-01-23 13:08] VITALS: BMI 26.4
[2020-11-22 15:35] LABS: Add Manual Diff / Slide Review NO; Basophils Absolute Auto 0 /uL (0-100); Basophils Percent Auto 0.4 % (0-2); Eosinophils Absolute Auto 100 /uL (0-450); Eosinophils Percent Auto 1.4 % (2-4); Hematocrit 42.6 % (36-46); Hemoglobin 14.4 g/dL (12.0-16.0); Lymphocytes Absolute Auto 1100 /uL (1100-4500); Lymphocytes Percent Auto 11.1 % (25-40); Mean Corpuscular HGB Conc 33.9 % (30-36); Mean Corpuscular Volume 91.4 fL (80-100); Monocytes Absolute Auto 600 /uL (0-900); Monocytes Percent Auto 5.9 % (3-14); Neutrophils Absolute Auto 8000 /uL (1500-7000); Neutrophils Percent Auto 81.2 % (50-75); Platelet Count 260 X10^3/uL (150-400); Red Blood Cell Count 4.66 X10^6/uL (4.0-5.2); Red Cell Distribution Width 13.5 % (11.6-14.8); White Blood Cell Count 9.8 X10^3/uL (4.5-11.0)
[2020-11-22 15:57] LABS: Erythrocyte Sedimentation Rate 34 MM/HR (0-20)
[2020-11-22 16:26] LABS: Hemoglobin A1C% w Est Avg Glu 5.6 % (4.0-6.0)
[2020-11-22 16:33] LABS: Alanine Aminotransferase 20 IU/L (<35); Albumin 4.3 g/dL (3.5-5.0); Albumin Globulin Ratio 1.4 (1.0-2.8); Alkaline Phosphatase 122 U/L (38-126); Aspartate Aminotransferase 39 IU/L (14-36); BUN Creatinine Ratio 23.9 (6-22); Bilirubin Total 0.4 mg/dL (0.2-1.3); Blood Urea Nitrogen 17 mg/dL (7-17); C-Reactive Protein Quant < 0.5 mg/dL (<1.0); Calcium 10.1 mg/dL (8.4-10.2); Carbon Dioxide 26 mmol/L (22-32); Chloride 102 mmol/L (98-107); Estimated Glomerular Filt Rate > 60.0 mL/min (>60); Glucose 122 mg/dL (80-110); HEMOLYSIS < 15 (0-50); Potassium 4.5 mmol/L (3.4-5.1); Sodium 138 mmol/L (137-145); Total Protein 7.3 g/dL (6.3-8.2)
[2020-11-22 16:38] LABS: NT-proBNP (BNP-Adult 18+) 92 pg/mL (<450)
[2020-11-22 17:04] LABS: Ferritin 109 ng/mL (11-264)
== END ==
PROVIDERS: Family Provider Physician Assistant; PCP Physician Assistant; Visit Provider Physician Assistant
DX: R63.4 Abnormal weight loss (principal); R53.83 Other fatigue; R06.00 Dyspnea, unspecified; R05 Cough; D72.810 Lymphocytopenia
CPT/HCPCS: 80053; 82728; 83036; 83880; 85025; 85651; 86140

== ENCOUNTER → 2020-12-03 13:15 | Outpatient (CLI) | payer MEDICARE, OTHER, SELFPAY ==
[2020-01-23 13:08] VITALS: BMI 26.4
--- NOTE | 2020-12-03 13:17 | DI.RAD.S_ITS ---
PROCEDURE: FL BARIUM SWALLOW W SPEECH INDICATIONS: Dysphagia, unspecified COMPARISON: TECHNIQUE: Examination was conducted in conjunction with speech pathology per standard protocol. In the lateral projection, filming was performed of the patient swallowing. AP projection filming may also be performed with patient swallowing. COMPARISON: [facility], , BARIUM SWALLOW, 08/30/2014, 10:17. FINDINGS: Function: The oral preparatory phase appears normal, with proper containment. The subsequent oral propulsive phase, pharyngeal phase, and esophageal phase of swallowing also appear normal with all proffered substances. No laryngotracheal penetration or aspiration. No pathologic vallecular pooling. Morphology: No cricopharyngeal bar is identified. No cervical esophageal webs. No Zenker's diverticulum. No strictures. IMPRESSION: Normal examination, however please also refer to the dedicated speech therapy report which will be independently generated. Dictated by: Jason Robles M.D. on 12/04/2020 at 10:39 Approved by: Jason Robles M.D. on 12/04/2020 at 10:39
--- NOTE | 2020-12-04 15:07 | ST.SWALLOW ---
Visit Care Team Role Provider Type Yoselyn Muhammad PA-C Family Provider Advanced Outpatient Clerk Specialty: Medical Address: [facility], [address] [place], [address] Email: [email or web address] Marli Ag PA-C Attending Provider Non-Staff Primary Care Provider Referring Provider Specialty: Internal Medicine Address: [address] [place] [address], [id number] Email: [email or web address] Modified Barium Swallow Study WAREHOUSE OPERATOR Modified Barium Swallow Study Start: 12/04/20 14:21 Freq: Status: Active Protocol: Document 12/03/20 13:30 LNK (Rec: 12/04/20 14:30 LNK [id number]) Modified Barium Swallow Study Total Time Visit Start Time 13:30 Visit Stop Time 14:00 Total Visit Minutes 30 Referral Referring Physician Marli Ag Reason for Referral dysphagia Setting Setting Outpatient Care Patient Information Identification Type Name,Date of Patient History Pt was seen for a Modified Barium Swallow Study (MBSS) at he referral of her PCP, Marli Ag. Pt reported that she eats and drinks quickly and will cough at times during her meals. She described her medical history as being healthy. She was unsure as to why she was referred for the MBSS. Subjective Observations Pt was seated in the fluoroscopy chair. Instructions and procedures were described for the pt, who indicated she agreed and understood. Patient Positioning Position View Lateral Imaging Lateral View Textures Administered Trials Presented Thin Liquid via Spoon,Thin Liquid via Cup,Pudding Thick Liquid via Spoon,Regular Textures,Barium Tablet Oral Phase Source: MBSIMP (TM) (C) Bolus Specific Scoring Grid Lip Closure WFL Tongue Control During Bolus Hold WFL Bolus Prep/Mastication WFL Bolus Transport/Lingual Motion WFL A/P Lingual Propulsion Delay No Oral Residue WFL Residue Clearing WFL Nasal Regurgitation No Additional Oral Phase Observations Pt presented with normal oral motor strength and ROM adequate for mastication. Few missing teeth, but adequate for mastication. Oral phase of swallow was WFL Pharyngeal Phase Source: MBSIMP (TM) (C) Bolus Specific Scoring Grid Delayed Initiation of Pharyngeal Swallow No Soft Palate Elevation No Impairment (WNL) Tongue Base Strength/Range of Motion No Impairment (WNL) Residue Along the Tongue Base No Clearance of Residue Along Tongue Base No Impairment (WNL) Laryngeal Elevation No Impairment (WNL) Anterior Hyoid Movement No Impairment (WNL) Epiglottic Range of Motion No Impairment (WNL) Clearance of Vallecular Residue No Impairment (WNL) Laryngeal Vestibular Closure No Impairment (WNL) Pharyngeal Stripping Wave No Impairment (WNL) Posterior Pharyngeal Wall Residue No Clearance of Posterior Pharyngeal Wall No Impairment (WNL) Residue Upper Esophageal Sphincter Opening No Impairment (WNL) Residue in the Pyriform Sinuses No Esophageal Clearance Upright Position WFL Pharyngoesophageal Backflow Observed No Additional Pharyngeal Phase Observations Pharyngeal phase of pt's swallow was observed to by WNL. There were osteophytes observed to mildly alter the bolus flow as it entered the esophagus. There was no functional affect of the osteophytes on the bolus flow overall. A/P View Clinical Impressions Dysphagia Type None Findings Pt presented with a normal swallow Patient Appropriate for Therapy No Recommendations
== END ==
PROVIDERS: Family Provider Physician Assistant; PCP Physician Assistant; Referring Provider Physician Assistant; Visit Provider Physician Assistant
DX: R13.10 Dysphagia, unspecified (principal)
CPT/HCPCS: 74230; 92611

== ENCOUNTER → 2020-12-21 13:07 | Outpatient (CLI) | payer MEDICARE, OTHER, SELFPAY ==
[2020-01-23 13:08] VITALS: BMI 26.4
--- NOTE | 2020-12-21 | DI.NM.S_ITS ---
PROCEDURE: NM EXERCISE TREADMILL NON NUC COMPARISON: None. INDICATIONS: Other fatigue Dyspnea, unspecified FINDINGS: The patient exercised for 6 minutes and 58 seconds reaching 10.1 METs, CARLENE -39%. 92% of maximum predicted heart rate achieved. Appropriate BP response to exercise. No ST changes with exercise. No ectopy. IMPRESSION: Low risk, normal treadmill ECG only stress test with very good exercise tolerance and no anginal symptoms. Dictated by: Shaka Espinoza MD on 12/21/2020 at 16:14 Approved by: Shaka Espinoza MD on 12/21/2020 at 16:15
--- NOTE | 2020-12-21 | DI.ECHO.S_ITS ---
[facility]---------+ [facility] +---------+ : : [address] : [address] : : : : [id number] : : : : Phone: [phone]+ Echocardiogram Report + + :Name: DENIZ HARMAN Study Date: 12/21/2020 Height: 62 in : :[facility] ReadingLocation: Weight: 139 lb : : Gender: Female BSA: 1.6 m2 : :: 1940 Age: 80 yrs BP: 126/69 mmHg: :Reason For Study: Dyspnea : : Performed By: Beth He : :Referring: PARVIZ BETANCOURT : + + Interpretation Summary The left ventricle is grossly normal size. The ejection fraction is estimated to be 60-65%. The right ventricle is normal in size and function. There is mild tricuspid regurgitation. The right ventricular systolic pressure is estimated to be at least 23 mmHg based on an estimated right atrial pressure of 3 mm Hg. The ascending aorta is mildly enlarged. Procedure: A two-dimensional transthoracic echocardiogram with color flow and Doppler was performed. The study quality was technically adequate. There is no prior echocardiogram noted for this patient. The patient was in normal sinus rhythm during the exam. Left Ventricle: The left ventricle is grossly normal size. Proximal septal thickening is noted. There is no echo evidence for significant left ventricular outflow tract obstruction. There is no thrombus. A false chord is noted (normal variant). The ejection fraction is estimated to be 60-65%. There are no focal wall motion abnormalities. MV E/A: 1.4 Med Peak E' Rao: 8.6 cm/sec E/E' med: 8.4. Right Ventricle: The right ventricle is normal in size and function. Atria: The left atrium is severely dilated. Right atrial size is normal. There is no Doppler evidence for an interatrial shunt. Mitral Valve: The mitral valve leaflets are slightly calcified. There is mild mitral annular calcification. There is trace mitral regurgitation. Aortic Valve: The aortic valve is trileaflet. The aortic valve is mildly calcified. There is no aortic valve stenosis. No aortic regurgitation is present. Tricuspid Valve: The tricuspid valve is normal. There is mild tricuspid regurgitation. The right ventricular systolic pressure is estimated to be at least 23 mmHg based on an estimated right atrial pressure of 3 mm Hg. Pulmonic Valve: The pulmonic valve is not well seen, but is grossly normal. Great Vessels: The aortic root is normal size. The ascending aorta is mildly enlarged. The aortic arch could not be visualized. The IVC is of normal diameter and collapses greater than 50% with a sniff. This suggests a low right atrial pressure of 3 mm Hg. Pericardium/ Pleura There is no pericardial effusion. MMode/2D Measurements & Calculations LVIDd: 4.2 cm LVOT diam: 1.7 cm LVIDs: 3.0 cm Ao root diam: 3.2 cm FS: 28.4 % asc Aorta Diam: 3.7 cm EPSS: 0.16 cm IVSd: 1.00 cm LVPWd: 0.82 cm LV kelly. diameter/BSA (cm/m^2): 2.6 LV sys. diameter/BSA (cm/m^2): 1.8 LA A2 area: 26.6 cm2 RA long axis: 5.5 cm LA A4 area: 19.8 cm2 RA area: 15.9 cm2 LA length (vol): 5.3 cm RA vol: 39.4 ml LA vol: 84.8 ml RA : 24.1 ml/m2 LA vol index: 51.8 ml/m2 IVC diam: 1.7 cm RVD1 (basal): 3.4 cm TAPSE: 2.4 cm Doppler Measurements & Calculations Ao V2 max: 107.2 cm/sec LVOT Max Rao: 95.5 cm/sec Ao V2 mean: 73.9 cm/sec LV V1 max P.7 mmHg Ao max P.6 mmHg LV V1 VTI: 22.7 cm Ao mean P.5 mmHg NOEL(I,D): 2.0 cm2 Ao V2 VTI: 26.7 cm NOEL(V,D): 2.1 cm2 sev ratio: 0.85 NOEL indexed to BSA (cm^2/m^2): 1.2 MV E max rao: 72.3 cm/sec TR max rao: 224.8 cm/sec MV A max rao: 50.5 cm/sec TR max P.2 mmHg MV E/A: 1.4 PA V2 max: 75.4 cm/sec Med Peak E' Rao: 8.6 cm/sec PA V2 mean: 58.3 cm/sec E/E' med: 8.4 PA mean P.4 mmHg Lat Peak E' Rao: 11.9 cm/sec PA pr(Accel): 9.6 mmHg E/E' lat: 6.1 E/e' average: 7.2 MV dec time: 0.21 sec SV(LVOT): 54.4 ml Reading Physician:06:14 PM
[2020-12-21 13:49] LABS: COVID19 -Nasal RAPID Negative (Negative)
--- NOTE | 2020-12-21 15:10 | PM.TREADMILL ---
Cardiac Stress Test Report Referral & Results Date Patient Seen: 12/21/20 Time Patient Seen: 15:10 Requesting provider: Marli Ag Indication: Dyspnea Rest ECG: Sinus rhythm Procedure Note: Standard Akhil protocol, 6:58, 7.0 METS Very good exercise capacity, CARLENE -39% Normal hemodynamic response to exercise No chest pain or anginal symptoms No significant ST changes at peak exercise No ectopy Impression: Normal exercise stress test Please note: Actual ECG tracings can be found in the PACS system.
== END ==
PROVIDERS: Family Provider Physician Assistant; PCP Physician Assistant; Referring Provider Physician Assistant; Visit Provider Physician Assistant
DX: I07.1 Rheumatic tricuspid insufficiency (principal); I77.89 Other specified disorders of arteries and arterioles; R06.00 Dyspnea, unspecified; R53.83 Other fatigue; R05 Cough; Z20.822 Contact with and (suspected) exposure to COVID-19
CPT/HCPCS: 87635; 93016; 93017; 93018; 93306

== ENCOUNTER → 2022-06-10 14:17 | Outpatient (CLI) | payer MEDICARE, OTHER, SELFPAY ==
[2020-01-23 13:08] VITALS: BMI 26.4
== END ==
PROVIDERS: Family Provider Physician Assistant; PCP Physician Assistant; Referring Provider Physician Assistant; Visit Provider Physician Assistant
DX: Z78.0 Asymptomatic menopausal state (principal); Z13.820 Encounter for screening for osteoporosis; M85.851 Other specified disorders of bone density and structure, right thigh; Z90.710 Acquired absence of both cervix and uterus
CPT/HCPCS: 77080

== ENCOUNTER → 2022-06-24 09:28 | Outpatient (CLI) | payer MEDICARE, OTHER, SELFPAY ==
[2020-01-23 13:08] VITALS: BMI 26.4
[2022-06-24 10:37] LABS: Hemoglobin 14.7 g/dL (12.0-16.0); Mean Corpuscular HGB Conc 33.3 % (30-36); Mean Corpuscular Hemoglobin 31.2 PG (26-34); Mean Corpuscular Volume 93.7 fL (80-100); Platelet Count 173 X10^3/uL (150-400); Red Cell Distribution Width 13.5 % (11.6-14.8); White Blood Cell Count 5.2 X10^3/uL (4.5-11.0)
[2022-06-24 10:59] LABS: Alanine Aminotransferase 27 IU/L (<35); Albumin 4.5 g/dL (3.5-5.0); Albumin Globulin Ratio 1.4 (1.0-2.8); Alkaline Phosphatase 85 U/L (38-126); Aspartate Aminotransferase 39 IU/L (14-36); Bilirubin Total 0.8 mg/dL (0.2-1.3); Blood Urea Nitrogen 16 mg/dL (7-17); Calcium 9.4 mg/dL (8.4-10.2); Carbon Dioxide 30 mmol/L (22-32); Chloride 103 mmol/L (98-107); Cholesterol 190 mg/dL (140-199); Estimated Glomerular Filt Rate > 60 mL/min (>60); Globulin 3.2 g/dL (1.7-4.1); Glucose 82 mg/dL (80-110); HDL Cholesterol 55 mg/dL (40-60); HEMOLYSIS < 15 (0-50); LDL Cholesterol Calculated 110 mg/dL (<100); Potassium 4.6 mmol/L (3.4-5.1); Sodium 142 mmol/L (137-145); Total Protein 7.7 g/dL (6.3-8.2); Triglycerides 126 mg/dL (35-150)
[2022-06-24 11:26] LABS: TSH w/ Reflex to FT4 2.12 uIU/mL (0.47-4.68)
[2022-06-24 11:45] LABS: Vitamin B12 792 pg/mL (239-931)
[2022-06-26 17:52] LABS: Albumin 3.8 g/dL (2.9-4.4); Alpha-1-Globulin 0.2 g/dL (0.0-0.4); Alpha-2-Globulin 0.6 g/dL (0.4-1.0); Gamma Globulin 0.8 g/dL (0.4-1.8); Globulin Total 2.7 g/dL (2.2-3.9); Protein, Total 6.5 g/dL (6.0-8.5)
== END ==
PROVIDERS: Family Provider Physician Assistant; PCP Internal Medicine; Referring Provider Internal Medicine; Visit Provider Internal Medicine
DX: E53.8 Deficiency of other specified B group vitamins (principal); E78.2 Mixed hyperlipidemia; G62.9 Polyneuropathy, unspecified; I48.20 Chronic atrial fibrillation, unspecified; R77.9 Abnormality of plasma protein, unspecified
CPT/HCPCS: 36415; 80053; 80061; 82607; 84155; 84165; 84443; 85027

== ENCOUNTER → 2022-06-25 08:12 | Outpatient (CLI) | payer MEDICARE, OTHER, SELFPAY ==
[2020-01-23 13:08] VITALS: BMI 26.4
--- NOTE | 2022-06-25 08:14 | DI.CT.S_ITS ---
PROCEDURE: CT ABDOMEN ADRENAL PROTOCOL INDICATIONS: adrenal nodule on 2018 CT scan TECHNIQUE: Noncontrast 3 mm thick sections acquired from the diaphragms to the iliac crests. After the administration of intravenous contrast, 3 mm thick venous-phase and 15-minute delayed images acquired from the diaphragms to the iliac crests. For radiation dose reduction, the following was used: automated exposure control, adjustment of mA and/or kV according to patient size. COMPARISON: [facility], CT, CT ABDOMEN PELVIS W CON, 01/23/2020, 9:59. FINDINGS: Image quality: Excellent. Lung bases: Clear lung bases. Mild cardiomegaly, particularly left atrium. Partially visible aortic valvular and coronary artery calcification. No pericardial effusion. Adrenal glands: 1.0 x 1.4 cm nodule in the body of the left adrenal gland demonstrates Hounsfield units of less than 10 consistent with a lipid rich adenoma. Postcontrast Hounsfield units are 71 and delayed phase Hounsfield units measure 23. Absolute washout calculated at 75%. Relative washout calculated at 60 8%, both consistent with adenomas. No other adrenal mass. Solid organs: The liver is normal size and attenuation. There are few scattered cysts, left lobe cyst is smaller compared to the prior study. Minor intrahepatic biliary dilatation, appropriate post cholecystectomy. The common duct is normal. The pancreas, kidneys, and spleen are normal. There is a splenule along the caudal aspect at the hilum. Peritoneum and bowel: The stomach and visible upper abdominal bowel loops are normal. Nodes and vessels: No retroperitoneal or mesenteric adenopathy by size criteria. Aorta and inferior vena cava are normal in size. Moderate abdominal aortic atherosclerotic calcification. Moderate scattered branch artery calcification throughout the abdomen. Miscellaneous: Narrow necked complex fat and omentum containing supraumbilical hernia. Bones: No suspicious bony lesions. No vertebral body compression fractures. Multilevel degenerative disc changes. IMPRESSION: 1. Stable sized left adrenal mass with attenuation and enhancement characteristics consistent with a benign lipid rich adenoma. No further follow-up is needed. 2. New fat containing supraumbilical hernia. Correlate with any symptoms. 3. Cholecystectomy and expected biliary tree changes. Dictated by: Yessenia Sam M.D. on 06/25/2022 at 11:58 Approved by: Yessenia Sam M.D. on 06/25/2022 at 12:11
--- NOTE | 2022-06-25 08:14 | DI.CT.S_ITS ---
PROCEDURE: CT HEAD/BRAIN WO CON INDICATIONS: cognitive impairment TECHNIQUE: Noncontrast 4.5 mm thick angled axial sections acquired from the foramen magnum to the vertex, with coronal and sagittal reformats. For radiation dose reduction, the following was used: automated exposure control, adjustment of mA and/or kV according to patient size. COMPARISON: None. FINDINGS: Image quality: Excellent. CSF spaces: Basal cisterns are patent. No extra-axial fluid collections. Ventricles are normal in size and shape. Brain: No midline shift. No intracranial masses or hemorrhage. Carter-white matter interface is normal. Moderate cerebral and cerebellar volume loss with multifocal white matter chronic ischemic change noted. Atherosclerotic calcification noted associated with cavernous segments of both internal carotid arteries. Skull and face: Calvarium and visualized facial bones are intact, without suspicious lesions. Sinuses: Visualized sinuses and mastoids are clear. IMPRESSION: Atrophy and chronic ischemic change intracranial hemorrhage or mass effect Approved by: Rodríguez Kelly M.D. on 06/25/2022 at 13:10
--- NOTE | 2022-06-25 08:15 | DI.ECHO.S_ITS ---
[facility] +---------+ [facility] +---------+ : : [address] : [address] : : : : [id number] : : : : Phone: [phone] : [phone]---------+ Echocardiogram Report + + :Name: DENIZ HARMAN Study Date: 06/25/2022 Height: 62 in : :[facility] ReadingLocation: Weight: 140 lb : : Gender: Female BSA: 1.6 m2 : :: 1940 Age: 81 yrs BP: 114/81 mmHg: :Reason For Study: ATRIAL FIBRILLATION : :Ordering Physician: TAL, : :KWAME Performed By: Manda Conde : :Referring: KWAME PARADA : + + Interpretation Summary The patient was in atrial fibrillation with heart rates between 74-100 bpm during the exam. Left ventricular ejection fraction is estimated to be 55 +/- 5%. Diastolic parameters suggest probable normal left ventricular diastolic function and normal filling pressures. Right ventricular systolic function is at the lower limits of normal. The right ventricular systolic pressure is estimated to be at least 26 mmHg based on an estimated right atrial pressure of 3 mm Hg. There is moderate tricuspid regurgitation. There is mild mitral regurgitation. The ascending aorta is mildly enlarged 3.9cm Procedure: A two-dimensional transthoracic echocardiogram with color flow and Doppler was performed. The study quality was technically adequate. Comparison is made with the echocardiogram of 12/21/2020. The patient was in atrial fibrillation with heart rates between 74-100 bpm during the exam. Left Ventricle: The left ventricle is normal in size and wall thickness. Left ventricular ejection fraction is estimated to be 55 +/- 5%. Diastolic parameters suggest probable normal left ventricular diastolic function and normal filling pressures. Right Ventricle: The right ventricle is normal size. Right ventricular systolic function is at the lower limits of normal. Atria: The left atrium is moderately dilated. The right atrium is mildly dilated. There is no Doppler evidence for an interatrial shunt. Mitral Valve: The mitral valve leaflets are slightly calcified. There is mild mitral annular calcification. There is mild mitral regurgitation. Aortic Valve: The aortic valve is trileaflet. The aortic valve opens well. There is no aortic valve stenosis. There is trace aortic regurgitation. Tricuspid Valve: The tricuspid valve is normal in structure and function. There is moderate tricuspid regurgitation. The right ventricular systolic pressure is estimated to be at least 26 mmHg based on an estimated right atrial pressure of 3 mm Hg. Pulmonic Valve: The pulmonic valve leaflets are thin and pliable; valve motion is normal. There is trace pulmonic regurgitation. Great Vessels: The aortic root is normal size. The ascending aorta is mildly enlarged. The IVC is of normal diameter and collapses greater than 50% with a sniff. This suggests a low right atrial pressure of 3 mm Hg. Pericardium/ Pleura There is no pericardial effusion. There is no pleural effusion. MMode/2D Measurements & Calculations LVIDd: 4.1 cm LVOT diam: 2.0 cm LVIDs: 2.9 cm Ao root diam: 3.3 cm FS: 29.6 % asc Aorta Diam: 3.9 cm IVSd: 0.82 cm Ao Arch Diam (Prox Trans): 2.0 cm LVPWd: 0.80 cm LV kelly. diameter/BSA (cm/m^2): 2.5 LV sys. diameter/BSA (cm/m^2): 1.8 LA A2 area: 23.2 cm2 RA long axis: 6.2 cm LA A4 area: 24.6 cm2 RA area: 20.0 cm2 LA length (vol): 6.3 cm RA vol: 55.4 ml LA vol: 77.1 ml RA : 33.7 ml/m2 LA vol index: 46.9 ml/m2 IVC diam: 1.8 cm RVD1 (basal): 3.4 cm RVD2 (mid): 2.9 cm TAPSE: 1.4 cm Doppler Measurements & Calculations Ao V2 max: 102.5 cm/sec LVOT Max Rao: 80.0 cm/sec Ao V2 mean: 70.2 cm/sec LV V1 max P.6 mmHg Ao max P.2 mmHg LV V1 VTI: 15.5 cm Ao mean P.3 mmHg NOEL(I,D): 2.5 cm2 Ao V2 VTI: 19.5 cm NOEL(V,D): 2.5 cm2 sev ratio: 0.79 NOEL indexed to BSA (cm^2/m^2): 1.5 MV E max rao: 94.4 cm/sec TR max rao: 239.5 cm/sec MV A max rao: 1.9 cm/sec TR max P.0 mmHg MV E/A: 49.4 PA V2 max: 70.1 cm/sec Med Peak E' Rao: 7.9 cm/sec PA V2 mean: 48.5 cm/sec E/E' med: 12.0 PA mean P.1 mmHg Lat Peak E' Rao: 15.5 cm/sec PA pr(Accel): 43.0 mmHg E/E' lat: 6.1 E/e' average: 9.0 MV dec time: 0.16 sec SV(LVOT): 49.5 ml Reading Physician:NAVI
== END ==
PROVIDERS: Family Provider Physician Assistant; PCP Internal Medicine; Referring Provider Internal Medicine; Visit Provider Internal Medicine
DX: G31.84 Mild cognitive impairment of uncertain or unknown etiology (principal); F03.90 Unspecified dementia, unspecified severity, without behavioral disturbance, psychotic disturbance, mood disturbance, and anxiety; I08.1 Rheumatic disorders of both mitral and tricuspid valves; I77.89 Other specified disorders of arteries and arterioles; I48.91 Unspecified atrial fibrillation; E27.8 Other specified disorders of adrenal gland; I51.7 Cardiomegaly; I70.0 Atherosclerosis of aorta; K42.9 Umbilical hernia without obstruction or gangrene; Z90.49 Acquired absence of other specified parts of digestive tract
CPT/HCPCS: 70450; 74170; 93306; Q9967

== ENCOUNTER → 2022-07-25 09:48 | Outpatient (CLI) | payer MEDICARE, OTHER, SELFPAY ==
[2020-01-23 13:08] VITALS: BMI 26.4
== END ==
PROVIDERS: Family Provider Physician Assistant; PCP Internal Medicine; Referring Provider Internal Medicine; Visit Provider Internal Medicine
DX: R77.8 Other specified abnormalities of plasma proteins (principal)
CPT/HCPCS: 86335

== ENCOUNTER 2023-04-22 05:11 | Emergency (ER) | payer MEDICARE, OTHER, SELFPAY ==
[2020-01-23 13:08] VITALS: BMI 26.4
[2023-04-22 05:17] VITALS: BP 159/84; PULSE 82; RESP 18; TEMP 36; O2SAT 99; BMI 25.6
[2023-04-22] MEDS: TRANEXAMIC ACID 1,000 MG VIAL 1000 MG (05:29)
--- NOTE | 2023-04-22 05:53 | ED_ITS ---
HPI - Dental/Oral General Chief complaint: Dental/Oral Stated complaint: tooth cauterized Time Seen by Provider: 04/22/23 05:17 Source: patient Mode of arrival: Ambulatory History of Present Illness HPI Narrative: 82-year-old female anticoagulated for chronic atrial fibrillation presents with her in the chief complaint of bleeding from a recent dental extraction site. She states that she was brushing her teeth and a suture got caught and was pulled out and she has had bleeding ever since. She is minimal pain. She is otherwise well and free of complaint. She denies numbness, tingling or weakness. She has a scheduled appointment with her dentist this morning at 10:00 a.m. here in [place]. Related Data Home Medications Medication Instructions Recorded Confirmed omega-3 fatty acids 1,000 mg 1,000 mg PO DAILY 01/28/18 01/29/23 capsule (Fish Oil Concentrate) vit C 250 mg-vit E 90 mg-zinc 40 1 tab PO DAILY 03/01/19 01/29/23 mg-copper 1 [id number] capsule (PreserVision AREDS-2) Lactobacillus acidophilus 10 10,000 mmu cells PO DAILY 06/23/22 01/29/23 billion cell capsule (Probiotic) melatonin 5 mg tablet 5 mg PO BEDTIME PRN 06/23/22 01/29/23 metoprolol succinate 25 mg 25 mg PO DAILY heart condition 07/24/22 01/29/23 tablet,extended release 24 hr (Toprol XL) magnesium 250 mg tablet 250 mg PO DAILY 01/29/23 01/29/23 Previous Rx's Medication Instructions Recorded atorvastatin 80 mg tablet 80 mg PO HS #360 tabs 04/06/19 sertraline 100 mg tablet (Zoloft) See Rx Instructions PO QDAY #360 04/06/19 tabs apixaban 5 mg tablet (Eliquis) 5 mg PO BID #60 tabs 06/30/22 donepezil 10 mg tablet 10 mg PO BEDTIME #90 tabs 09/10/22 Allergies Allergy/AdvReac Type Severity Reaction Status Date / Time cat dander [CAT DANDER] Allergy Mild HIVES, Verified 01/29/23 07:42 ITCHING Iodinated Contrast Media Allergy Swelling Verified 01/29/23 07:42 of Lip/Tongue/Throat contrast for eye AdvReac Severe throat Uncoded 01/29/23 07:42 swells tingling in arm Review of Systems Review of Systems Narrative: GENERAL: Denies chills, fatigue, malaise, fever, sweats. HEENT: See HPI RESPIRATORY: Denies dyspnea, cough, wheezing, hemoptysis, sputum. CARDIOVASCULAR: Denies chest pain, palpitations, orthopnea, edema, GASTROINTESTINAL: Denies nausea, vomiting, abdominal pain, diarrhea, constipation, melena. : Denies dysuria, frequency, incontinence, hematuria, urinary retention. MUSCULOSKELETAL: denies weakness, joint pain, or bony pain SKIN: Denies rash, skin lesions, or other NEUROLOGIC: Denies weakness, headache, numbness, change in speech, confusion, seizures, incoordination. PSYCHIATRIC: No concerning psychosocial issues. 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/16) Generalized anxiety disorder Left sided sciatica Mixed hyperlipidemia Osteopenia Panic disorder (12/16/10) Partial blindness Polyneuropathy, unspecified Skin cancer Surgical History Anesthesia History of appendectomy (~2019) History of cholecystectomy (~1994) History of eyelid surgery (~1989) History of hysterectomy (~1995) Family History Father History of heart disease Social History details: ([place]) household members: spouse Smoking Status: Former smoker Tobacco: How many years used: 10 second hand exposure: No alcohol intake: current substance use type: does not use Smoking Status: Former smoker alcohol intake frequency: 0-2 drinks per day Alcohol type: wine Substance Use Type: does not use Exam Narrative Exam Narrative: GEN: AOx3 and in mild distress EYES: Pupils are equal, round, and reactive to light and accommodation. Extraoccular muscles are intact bilaterally. There is no subconjunctival hemorrhage or exudate. ENT: Slow bright red bleeding from dental extraction site in left upper molar, no swelling, airway patent CHEST: Lungs are clear to auscultation bilaterally and free of wheezes, rales, or rhonchi. Heart rate is regular rhythm, there are no murmurs, clicks, rubs, or gallops. There is no chest wall tenderness. ABD: Abdomen is soft and nontender. There is no guarding or rebound. Bowel sounds are normal in all 4 quadrants. There is no mass or organomegaly. EXT: Full painless ROM of all extremities with no loss of sensation or strength. SKIN: Warm, pink, and dry. No erythema or rash Initial Vital Signs Initial Vital Signs: Vital Signs Temperature 96.8 F L 04/22/23 05:17 Pulse Rate 82 04/22/23 05:17 Respiratory Rate 18 04/22/23 05:17 Blood Pressure 159/84 H 04/22/23 05:17 Pulse Oximetry 99 04/22/23 05:17 Oxygen Delivery Method Room Air 04/22/23 05:17 Procedures [facility] [place] Procedure Name of Procedure: hemorrhage control Location: left upper molar Technique/Description of procedure performed: first injected with 3mL of Lido w/epinephrine. Carreon tip suction at bedside. surgicel placed at site and soaked in TXA. 2x2 gauze then placed to act as bite block for patient. Minimal bleeding continues but greatly improved Course Vital Signs Vital signs: Vital Signs - 8 hr 04/22/23 05:17 Temperature 96.8 F L Pulse Rate 82 Respiratory Rate 18 Blood Pressure 159/84 H Pulse Oximetry 99 Oxygen Delivery Method Room Air MDM - Dental/Oral MDM Narrative Medical decision making narrative: [82] year old patient presents with bleeding from recent dental site Multiple etiologies for patient's symptoms considered including, but not limited to: [Bleeding from dental surgical site, anticoagulation versus other] Prior Charts reviewed in our EMR Primary Historian: patient Patient's history and physical exam is reassuring. She is anticoagulated and has bleeding from a recent dental surgical site. Procedure performed as noted above, minimal bleeding continues, greatly improved, she has an appointment at 10:00 a.m. but will present to the dentist office when they open to see if she may be seen sooner: Patient's symptoms improved over duration of stay with above-stated therapies. Findings and discharge diagnosis discussed with patient/family followed by verbalization of understanding Return precautions discussed with patient/family whom verbalize understanding of diagnosis and plan Discharge Plan Departure Patient Disposition: Home Clinical Impression: Surgical wound hemorrhage after dental procedure Activity Restrictions/Additional Instructions: *You have been diagnosed with [dental bleeding after tooth extraction. Lidocaine with epinephrine was injected at the bleeding site and then Surgicel was placed and soaked in TXA and then covered in a 2 x 2 gauze *What to do: *Please continue to take your regular medications as directed. *Please follow up with your dentist later this morning as planned. As we discussed it may be reasonable to call or show up at the office when they open to see if he might get seen sooner. Please continue to apply pressure on the bleeding site by biting on the gauze *Return to Emergency Department if you should have any new, worsening or concerning symptoms, such as [fever greater than 101 F, shaking chills, worsening pain, persistent vomiting or other bothersome symptoms] Prescriptions: No Action omega-3 fatty acids [Fish Oil Concentrate] 1,000 mg capsule 1,000 mg PO DAILY atorvastatin 80 mg tablet 80 mg PO HS Qty: 360 0RF sertraline [Zoloft] 100 mg tablet See Rx Instructions PO QDAY Qty: 360 0RF Dose Instruction: 100-150mg PO QDAY; Rx Instructions: 100-150mg PO QDAY; Eliquis 5 mg tablet 5 mg PO BID Qty: 60 11RF PreserVision AREDS-2 [id number]-mg capsule 1 tab PO DAILY Probiotic 10 billion cell capsule 10,000 mmu cells PO DAILY melatonin 5 mg tablet 5 mg PO BEDTIME PRN metoprolol succinate [Toprol XL] 25 mg tablet extended release 24 hr 25 mg PO DAILY donepezil 10 mg tablet 10 mg PO BEDTIME Qty: 90 3RF magnesium 250 mg tablet 250 mg PO DAILY Referrals: Sampson William MD [Primary Care Provider] - Stand Alone Forms: Patient Portal/API
== END 2023-04-22 06:00 | disposition home or self-care (01) ==
PROVIDERS: Emergency Provider Emergency Medicine; Family Provider Physician Assistant; PCP Internal Medicine
DX: K91.840 Postprocedural hemorrhage of a digestive system organ or structure following a digestive system procedure (principal)
CPT/HCPCS: 99281; 99283

== ENCOUNTER → 2023-06-26 07:45 | Outpatient (CLI) | payer MEDICARE, OTHER, SELFPAY ==
[2020-01-23 13:08] VITALS: BMI 26.4
[2023-06-26 08:43] LABS: Mean Corpuscular HGB Conc 34.2 % (30-36); Mean Corpuscular Hemoglobin 30.9 PG (26-34); Mean Corpuscular Volume 90.3 fL (80-100); Platelet Count 191 X10^3/uL (150-400); Red Blood Cell Count 4.53 X10^6/uL (4.0-5.2); Red Cell Distribution Width 14.1 % (11.6-14.8); White Blood Cell Count 5.9 X10^3/uL (4.5-11.0)
[2023-06-26 08:47] LABS: Alanine Aminotransferase 19 IU/L (<35); Albumin 4.3 g/dL (3.5-5.0); Albumin Globulin Ratio 1.6 (1.0-2.8); Alkaline Phosphatase 110 U/L (38-126); Aspartate Aminotransferase 31 IU/L (14-36); BUN Creatinine Ratio 23.2 (6-22); Bilirubin Total 0.9 mg/dL (0.2-1.3); Blood Urea Nitrogen 19 mg/dL (7-17); Calcium 9.7 mg/dL (8.4-10.2); Carbon Dioxide 27 mmol/L (22-32); Chloride 104 mmol/L (98-107); Cholesterol 197 mg/dL (140-199); Estimated Glomerular Filt Rate > 60 mL/min (>60); Globulin 2.7 g/dL (1.7-4.1); Glucose 105 mg/dL (80-110); HDL Cholesterol 53 mg/dL (40-60); HEMOLYSIS < 15 (0-50); LDL Cholesterol Calculated 119 mg/dL (<100); Potassium 4.4 mmol/L (3.4-5.1); Sodium 138 mmol/L (137-145); Triglycerides 125 mg/dL (35-150)
== END ==
PROVIDERS: Family Provider Physician Assistant; PCP Internal Medicine; Referring Provider Internal Medicine; Visit Provider Internal Medicine
DX: I48.20 Chronic atrial fibrillation, unspecified (principal); E78.2 Mixed hyperlipidemia; Z79.01 Long term (current) use of anticoagulants
CPT/HCPCS: 36415; 80053; 80061; 85027

== ENCOUNTER → 2024-06-27 08:32 | Outpatient (CLI) | payer MEDICARE, OTHER, SELFPAY ==
[2020-01-23 13:08] VITALS: BMI 26.4
[2024-06-27 09:41] LABS: Hematocrit 43.3 % (36-46); Hemoglobin 14.7 g/dL (12.0-16.0); Mean Corpuscular HGB Conc 33.9 % (30-36); Mean Corpuscular Hemoglobin 31.7 PG (26-34); Mean Corpuscular Volume 93.2 fL (80-100); Platelet Count 179 X10^3/uL (150-400); Red Blood Cell Count 4.64 X10^6/uL (4.0-5.2); Red Cell Distribution Width 14.2 % (11.6-14.8); White Blood Cell Count 6.1 X10^3/uL (4.5-11.0)
[2024-06-27 10:02] LABS: Alanine Aminotransferase 27 IU/L (<35); Albumin 4.6 g/dL (3.5-5.0); Albumin Globulin Ratio 1.9 (1.0-2.8); Alkaline Phosphatase 84 U/L (38-126); Aspartate Aminotransferase 43 IU/L (14-36); BUN Creatinine Ratio 17.6 (6-22); Bilirubin Total 1.1 mg/dL (0.2-1.3); Blood Urea Nitrogen 16 mg/dL (7-17); Carbon Dioxide 28 mmol/L (22-32); Chloride 104 mmol/L (98-107); Cholesterol 202 mg/dL (140-199); Estimated Glomerular Filt Rate > 60 mL/min (>60); Globulin 2.4 g/dL (1.7-4.1); Glucose 99 mg/dL (80-110); HDL Cholesterol 60 mg/dL (40-60); HEMOLYSIS < 15 (0-50); LDL Cholesterol Calculated 112 mg/dL (<100); Potassium 4.4 mmol/L (3.4-5.1); Sodium 140 mmol/L (137-145); Triglycerides 148 mg/dL (35-150)
[2024-06-27 10:31] LABS: TSH w/ Reflex to FT4 3.75 uIU/mL (0.47-4.68)
== END ==
PROVIDERS: Family Provider Physician Assistant; PCP Internal Medicine; Referring Provider Internal Medicine; Visit Provider Internal Medicine
DX: I48.20 Chronic atrial fibrillation, unspecified (principal); E78.2 Mixed hyperlipidemia; G30.1 Alzheimer's disease with late onset; F02.A0 Dementia in other diseases classified elsewhere, mild, without behavioral disturbance, psychotic disturbance, mood disturbance, and anxiety; G62.9 Polyneuropathy, unspecified; F41.1 Generalized anxiety disorder; H81.12 Benign paroxysmal vertigo, left ear; M85.80 Other specified disorders of bone density and structure, unspecified site; J30.89 Other allergic rhinitis
CPT/HCPCS: 36415; 80053; 80061; 84443; 85027

== ENCOUNTER → 2024-12-06 09:57 | Outpatient (CLI) | payer MEDICARE, OTHER, SELFPAY ==
[2020-01-23 13:08] VITALS: BMI 26.4
--- NOTE | 2024-12-06 09:59 | DI.RAD.S_ITS ---
PROCEDURE: XR FOOT LT MIN 3V INDICATIONS: Pain in left foot TECHNIQUE: 3 views of the foot were acquired. COMPARISON: None. FINDINGS: Bones: Moderate pes planus and mild hammertoe deformities 2nd through 5th digits noted. Mild congenital foreshortening 1st metatarsal noted Joints: Mild degenerative change in all interphalangeal joints. Soft tissues: Mild calcification of plantar Achilles tendon insertions. IMPRESSION: Chronic findings that as described Dictated by: Ryan Quick M.D. on 12/07/2024 at 12:18 Approved by: Ryan Quick M.D. on 12/07/2024 at 12:19
== END ==
PROVIDERS: Family Provider Physician Assistant; PCP Internal Medicine; Referring Provider Podiatrist Foot & Ankle Surgery; Visit Provider Podiatrist Foot & Ankle Surgery
DX: M21.42 Flat foot [pes planus] (acquired), left foot (principal); M20.42 Other hammer toe(s) (acquired), left foot; M65.872 Other synovitis and tenosynovitis, left ankle and foot; M79.672 Pain in left foot
CPT/HCPCS: 73630

== ENCOUNTER → 2025-06-29 08:30 | Outpatient (CLI) | payer MEDICARE, OTHER, SELFPAY ==
[2020-01-23 13:08] VITALS: BMI 26.4
[2025-06-29 09:07] LABS: Hematocrit 43.3 % (36-46); Hemoglobin 14.6 g/dL (12.0-16.0); Mean Corpuscular HGB Conc 33.7 % (30-36); Mean Corpuscular Hemoglobin 31.3 PG (26-34); Mean Corpuscular Volume 92.8 fL (80-100); Platelet Count 187 X10^3/uL (150-400)
[2025-06-29 09:22] LABS: Alanine Aminotransferase 21 IU/L (<35); Albumin 4.7 g/dL (3.5-5.0); Albumin Globulin Ratio 1.8 (1.0-2.8); Alkaline Phosphatase 90 U/L (38-126); Blood Urea Nitrogen 17 mg/dL (7-17); Calcium 9.6 mg/dL (8.4-10.2); Carbon Dioxide 26 mmol/L (22-32); Chloride 106 mmol/L (98-107); Cholesterol 208 mg/dL (140-199); Estimated Glomerular Filt Rate > 60 mL/min (>60); Globulin 2.6 g/dL (1.7-4.1); Glucose 90 mg/dL (70-99); HDL Cholesterol 62 mg/dL (40-60); HEMOLYSIS < 15 (0-50); Potassium 4.1 mmol/L (3.4-5.1); Sodium 142 mmol/L (137-145); Total Protein 7.3 g/dL (6.3-8.2); Triglycerides 169 mg/dL (35-150)
[2025-06-29 17:37] LABS: Vitamin B12 Reflex MMA if <400 722 pg/mL (239-931)
== END ==
PROVIDERS: PCP Internal Medicine; Referring Provider Internal Medicine; Visit Provider Internal Medicine
DX: E53.8 Deficiency of other specified B group vitamins (principal); E78.2 Mixed hyperlipidemia; I48.20 Chronic atrial fibrillation, unspecified
CPT/HCPCS: 36415; 80053; 80061; 82607; 85027